=== PATIENT | male | born 1955 | race African-American/Black ===

== ENCOUNTER 2017-09-27 01:13 | Inpatient (IN) | payer OTHER ==
[~2017-09-27] VITALS: Ht 180.3 cm; Wt 92.0 kg
[2017-09-27] MEDS ORDERED: NORVASC10 MG PO (01:22)
[2017-09-27] MEDS ORDERED: ASPIRIN EC81 M1 PO (01:22)
[2017-09-27] MEDS ORDERED: ZYLOPRIM300 MG PO (01:22)
[2017-09-27] MEDS ORDERED: LISINOPRIL10 MG (01:22)
[2017-09-27 02:54] VITALS: BP 120/75
[2017-09-27 04:46] VITALS: BP 131/80
[2017-09-27 07:50] LABS: ANION GAP 24.9 mmol/L (8-16); CALCIUM 9.2 mg/dL (8.5-10.1); CARBON DIOXIDE 18.8 mmol/L (21.0-32.0); PHOSPHOROUS 8.6 mg/dL (2.5-4.9); POTASSIUM - SERUM 5.7 mmol/L (3.5-5.1)
[2017-09-27 07:54] LABS: BASOPHILS 0.1 % (0-2); EOSINOPHILS 0.8 % (0-7); HEMATOCRIT 24.2 % (42.0-54.0); HEMOGLOBIN 8.3 g/dL (13.5-17.5); IMMATURE GRANULOCYTES 0.1 % (0-5); MCH 28.4 pg (26.0-34.0); MCHC 34.3 g/dL (31.0-37.0); MCV 82.9 fL (80.0-100.0); MEAN PLATELET VOLUME 9.2 fL (7.4-10.4); MONOCYTES 7.8 % (2-11); NEUTROPHILS 73.2 % (40-80); PLATELET COUNT 230 10x3/uL (130-400); RBC 2.92 10x6/uL (4.20-6.10); RDW 13.4 % (11.5-14.5); WBC 8.2 10x3/uL (4.8-10.8)
[2017-09-27 08:00] VITALS: BP 138/82
[2017-09-27 12:00] VITALS: BP 142/84
[2017-09-27 12:22] LABS: % SATURATION 20 % (15-55); IRON 33 ug/dl (35-150); TOTAL IRON BIND CAPACITY 164 ug/dl (260-445); UNSAT IRON BIND CAPACITY 131 ug/dl (150-375)
[2017-09-27 14:19] LABS: COMPLEMENT C4 60.8 mg/dL (17.4-52.2)
[2017-09-27 14:49] LABS: COLOR STRAW (YELLOW)
[2017-09-27 14:50] LABS: APPEARANCE CLEAR (CLEAR); BILIRUBIN NEGATIVE (NEGATIVE); GLUCOSE NEGATIVE (NEGATIVE); KETONE NEGATIVE (NEGATIVE); NITRITE NEGATIVE (NEGATIVE); PROTEIN 1+ mg/dL (NEGATIVE); SPECIFIC GRAVITY 1.005 (1.005-1.020); UROBILINOGEN NORMAL (NORMAL)
[2017-09-27 14:51] LABS: BACTERIA MANY /hpf (NONE SEEN); EPITHELIAL CELLS 0-5 /hpf (0-5); MUCUS <1+ /lpf (NONE SEEN); RED CELLS - URINE 0-5 /hpf (0-5)
[2017-09-27 14:52] LABS: AMORPHOUS SEDIMENT <1+ /lpf (NONE SEEN); WHITE CELLS - URINE 25-50 /hpf (0-5)
[2017-09-27 15:30] VITALS: BP 125/66
[2017-09-27 16:00] VITALS: BP 132/78
[2017-09-27 21:03] LABS: BASOPHILS 0 % (0-2); EOSINOPHILS 1.2 % (0-7); IMMATURE GRANULOCYTES 0.1 % (0-5); LYMPHOCYTES 18.1 % (15-50); MCH 28.5 pg (26.0-34.0); MCHC 34.4 g/dL (31.0-37.0); MEAN PLATELET VOLUME 9.1 fL (7.4-10.4); MONOCYTES 6.1 % (2-11); NEUTROPHILS 74.5 % (40-80); PLATELET COUNT 239 10x3/uL (130-400); RBC 2.35 10x6/uL (4.20-6.10); RDW 13.3 % (11.5-14.5); WBC 7.7 10x3/uL (4.8-10.8)
[2017-09-27 21:25] LABS: HEMATOCRIT 19.5 % (42.0-54.0); HEMOGLOBIN 6.7 g/dL (13.5-17.5)
[2017-09-28 03:18] VITALS: BP 169/73; BMI 30.3
[2017-09-28 04:00] VITALS: BP 124/71
[2017-09-28 05:00] LABS: CREATININE - URINE 68.2 mg/dL (30-125)
[2017-09-28 05:01] LABS: PROTEIN - URINE 316.4 mg/dL (0.0-11.9)
[2017-09-28 05:05] LABS: APPEARANCE CLEAR (CLEAR); COLOR STRAW (YELLOW)
[2017-09-28 05:06] LABS: BILIRUBIN NEGATIVE (NEGATIVE); GLUCOSE NEGATIVE (NEGATIVE); KETONE NEGATIVE (NEGATIVE); NITRITE NEGATIVE (NEGATIVE); PROTEIN 2+ mg/dL (NEGATIVE); SPECIFIC GRAVITY 1.005 (1.005-1.020); UROBILINOGEN NORMAL (NORMAL)
[2017-09-28 05:07] LABS: BACTERIA FEW /hpf (NONE SEEN); EPITHELIAL CELLS 0-5 /hpf (0-5); RED CELLS - URINE 0-5 /hpf (0-5)
[2017-09-28 07:30] LABS: FOLATE (FOLIC ACID) - SERUM 4.9 ng/mL (>3.0)
[2017-09-28 08:11] VITALS: BP 134/77
[2017-09-28 10:19] LABS: BASOPHILS 0 % (0-2); EOSINOPHILS 0.8 % (0-7); IMMATURE GRANULOCYTES 0.2 % (0-5); LYMPHOCYTES 18.8 % (15-50); MCH 28.9 pg (26.0-34.0); MCHC 34.5 g/dL (31.0-37.0); MCV 83.8 fL (80.0-100.0); MEAN PLATELET VOLUME 8.6 fL (7.4-10.4); MONOCYTES 3.8 % (2-11); NEUTROPHILS 76.4 % (40-80); PLATELET COUNT 194 10x3/uL (130-400); RDW 13.6 % (11.5-14.5); WBC 8.7 10x3/uL (4.8-10.8)
[2017-09-28 10:23] LABS: HEMATOCRIT 26.4 % (42.0-54.0); HEMOGLOBIN 9.1 g/dL (13.5-17.5); RBC 3.15 10x6/uL (4.20-6.10)
[2017-09-28 10:41] LABS: ALBUMIN 2.8 g/dL (3.4-5.0); ANION GAP 19.2 mmol/L (8-16); BILIRUBIN - TOTAL 0.41 mg/dL (0.2-1.3); CALCIUM 8.6 mg/dL (8.5-10.1); CARBON DIOXIDE 25.1 mmol/L (21.0-32.0); CREATININE - SERUM 15.2 mg/dL (0.6-1.3); POTASSIUM - SERUM 4.3 mmol/L (3.5-5.1)
[2017-09-28 11:21] LABS: HEPATITIS C ANTIBODY 0.1 (0.0-0.9)
[2017-09-28 11:50] VITALS: BP 136/75
[2017-09-28 12:48] LABS: APTT 30.6 SECONDS (22.8-39.4); INR 1.19 (0.85-1.17); PROTIME 14.7 SECONDS (11.6-15.0)
[2017-09-28 15:01] VITALS: BMI 26.7
[2017-09-28 15:52] VITALS: BP 125/71
[2017-09-28 20:34] VITALS: BP 133/73
[2017-09-29 01:15] VITALS: BP 120/67
[2017-09-29 05:40] VITALS: BP 113/67
[2017-09-29 06:21] LABS: BASOPHILS 0 % (0-2); EOSINOPHILS 1.7 % (0-7); HEMATOCRIT 23.3 % (42.0-54.0); HEMOGLOBIN 8.2 g/dL (13.5-17.5); IMMATURE GRANULOCYTES 0.1 % (0-5); LYMPHOCYTES 20.3 % (15-50); MCH 29.1 pg (26.0-34.0); MCHC 35.2 g/dL (31.0-37.0); MCV 82.6 fL (80.0-100.0); MEAN PLATELET VOLUME 9.3 fL (7.4-10.4); MONOCYTES 6.5 % (2-11); NEUTROPHILS 71.4 % (40-80); PLATELET COUNT 199 10x3/uL (130-400); RBC 2.82 10x6/uL (4.20-6.10); RDW 13.3 % (11.5-14.5); WBC 6.9 10x3/uL (4.8-10.8)
[2017-09-29 06:51] LABS: ALBUMIN 2.3 g/dL (3.4-5.0); ANION GAP 15.8 mmol/L (8-16); BILIRUBIN - TOTAL 0.38 mg/dL (0.2-1.3); CALCIUM 8.5 mg/dL (8.5-10.1); CARBON DIOXIDE 29.8 mmol/L (21.0-32.0); CREATININE - SERUM 15.3 mg/dL (0.6-1.3); MAGNESIUM - SERUM 1.5 mg/dL (1.8-2.4); PHOSPHOROUS 8.8 mg/dL (2.5-4.9); POTASSIUM - SERUM 4.6 mmol/L (3.5-5.1); PROTEIN - SERUM 6.7 g/dL (6.4-8.2)
[2017-09-29 07:36] LABS: SPE - A/G RATIO 0.7 (0.7-1.7); SPE - ALBUMIN 2.9 g/dL (2.9-4.4); SPE - ALPHA-1 GLOBULIN 0.4 g/dL (0.0-0.4); SPE - ALPHA-2 GLOBULIN 1.4 g/dL (0.4-1.0); SPE - GAMMA GLOBULIN 1.3 g/dL (0.4-1.8); SPE - M-SPIKE 0.4 g/dL (Not Observed)
[2017-09-29 08:42] VITALS: BP 130/77
[2017-09-29 09:30] LABS: CREATININE - URINE 43.7 mg/dL (30-125)
[2017-09-29 09:31] LABS: PROTEIN - URINE 214.3 mg/dL (0.0-11.9)
[2017-09-29 11:38] VITALS: BP 127/75
[2017-09-29 13:05] VITALS: Ht 180.3 cm; Wt 92.0 kg
[2017-09-29 15:29] LABS: UPE RAND - ALBUMIN 2.8 % (()); UPE RAND - ALPHA 1 GLOBULIN 1.1 % (()); UPE RAND - ALPHA 2 GLOBULIN 3.2 % (()); UPE RAND - BETA GLOBULIN 7.3 % (()); UPE RAND - GAMMA GLOBULIN 85.6 % (())
[2017-09-29 16:04] VITALS: BP 137/78
[2017-09-29 17:12] LABS: HEP B CORE AB TOTAL Negative (Negative)
[2017-09-29 17:24] LABS: BASOPHILS 0 % (0-2); EOSINOPHILS 1.2 % (0-7); HEMATOCRIT 24.2 % (42.0-54.0); HEMOGLOBIN 8.3 g/dL (13.5-17.5); IMMATURE GRANULOCYTES 0.1 % (0-5); LYMPHOCYTES 18.3 % (15-50); MCH 28.6 pg (26.0-34.0); MCHC 34.3 g/dL (31.0-37.0); MCV 83.4 fL (80.0-100.0); MEAN PLATELET VOLUME 8.6 fL (7.4-10.4); MONOCYTES 7.2 % (2-11); NEUTROPHILS 73.2 % (40-80); PLATELET COUNT 189 10x3/uL (130-400); RDW 13.3 % (11.5-14.5); WBC 7.8 10x3/uL (4.8-10.8)
[2017-09-29 21:02] VITALS: BP 137/77
[2017-09-30] VITALS (8 sets, daily range): BP systolic 122–156; BP diastolic 71–96
[2017-09-30 05:36] LABS: BASOPHILS 0 % (0-2); HEMATOCRIT 23.9 % (42.0-54.0); HEMOGLOBIN 8.2 g/dL (13.5-17.5); IMMATURE GRANULOCYTES 0.3 % (0-5); MCH 28.8 pg (26.0-34.0); MCHC 34.3 g/dL (31.0-37.0); MCV 83.9 fL (80.0-100.0); MONOCYTES 7.3 % (2-11); NEUTROPHILS 74.4 % (40-80); PLATELET COUNT 197 10x3/uL (130-400); RBC 2.85 10x6/uL (4.20-6.10); RDW 13.1 % (11.5-14.5); WBC 7.6 10x3/uL (4.8-10.8)
[2017-09-30 06:10] LABS: APTT 33.4 SECONDS (22.8-39.4); INR 1.17 (0.85-1.17); PROTIME 14.5 SECONDS (11.6-15.0)
[2017-09-30 06:42] LABS: ALBUMIN 2.3 g/dL (3.4-5.0); ANION GAP 15.3 mmol/L (8-16); BILIRUBIN - TOTAL 0.31 mg/dL (0.2-1.3); CALCIUM 8.7 mg/dL (8.5-10.1); CARBON DIOXIDE 34.1 mmol/L (21.0-32.0); CREATININE - SERUM 15.9 mg/dL (0.6-1.3); MAGNESIUM - SERUM 1.3 mg/dL (1.8-2.4); POTASSIUM - SERUM 4.4 mmol/L (3.5-5.1); PROTEIN - SERUM 6.8 g/dL (6.4-8.2)
[2017-09-30 06:44] LABS: PHOSPHOROUS 9.4 mg/dL (2.5-4.9)
[2017-09-30 09:20] LABS: ANTI-GLOMERULAR BASMENT MEMBRN 3 units (0-20)
[2017-09-30 17:14] LABS: ANCA - ANTIMYELOPEROXIDASE <9.0 U/mL (0.0-9.0); ANCA - ANTIPROTEINASE 3 <3.5 U/mL (0.0-3.5); ANCA - ATYPICAL <1:20 titer (Neg:<1:20); ANCA - CYTOPLASMIC <1:20 titer (Neg:<1:20); ANCA - PERINUCLEAR <1:20 titer (Neg:<1:20)
== END 2017-09-30 22:00 | disposition short-term general hospital (02) | DRG 840 ==
LOC: D.ER 01:13 → D.M2 06:58 → D.EDHOLD 06:58 → D.M2 16:34
PROVIDERS: Family Medicine; Family Medicine Adult Medicine; Internal Medicine Nephrology; Radiology Diagnostic Radiology; Radiology Vascular & Interventional Radiology
PROC: 07DR3ZX Extraction of Iliac Bone Marrow, Percutaneous Approach, Diagnostic (ICD-10-PCS; principal; 2017-09-30 10:00)
DX: C90.00 Multiple myeloma not having achieved remission (principal); E43 Unspecified severe protein-calorie malnutrition; N17.9 Acute kidney failure, unspecified; K92.2 Gastrointestinal hemorrhage, unspecified; D64.9 Anemia, unspecified; I10 Essential (primary) hypertension; E83.39 Other disorders of phosphorus metabolism; M10.9 Gout, unspecified; D50.9 Iron deficiency anemia, unspecified; E87.5 Hyperkalemia; E83.42 Hypomagnesemia; N08 Glomerular disorders in diseases classified elsewhere